=== PATIENT | male | born 1960 | race Caucasian/White ===

== ENCOUNTER 2018-02-10 14:46 | Emergency (ER) | payer OTHER | END 2018-02-10 17:32 | disposition home or self-care (01) | LOC: FTE 14:46 | DX: N50.89 Other specified disorders of the male genital organs (principal) | CPT/HCPCS: 76536; 76870; 99284-25 ==

== ENCOUNTER 2018-07-12 09:43 | Day surgery (SDC) | payer OTHER ==
[~2018-07-12 09:43] MED LIST: CEFAZOLIN 2 GM/50 ML (PMX) 50 ML IVPB
[2018-07-12] MEDS ORDERED: MIDAZOLAM 1 MG/ML 2 ML INJ (13:10)
[2018-07-12] MEDS ORDERED: FENTAnyl 50 MCG/ML VIAL ×2 (13:10→13:46)
[2018-07-12] MEDS ORDERED: CIPROFLOXACIN 400MG/D5W 200 ML (13:19)
[2018-07-12] MEDS: BUPIVACAINE 0.25% (MPF) 30 ML INJ (13:33)
[2018-07-12] MEDS ORDERED: CEFAZOLIN 1 GM INJ (14:03)
[2018-07-12] MEDS ORDERED: LIDOCAINE 2% (SDV) 5 ML INJ (14:03)
[2018-07-12] MEDS ORDERED: PROPOFOL 20 ML (14:03)
[2018-07-12] MEDS ORDERED: ONDANSETRON 4 MG INJ (14:04)
[2018-07-12] MEDS ORDERED: LABETALOL HCL 20MG INJ IV (14:30)
[2018-07-12] MEDS ORDERED: FENTAnyl 50 MCG/ML VIAL IV (14:30)
[2018-07-12] MEDS ORDERED: DIPHENHYDRAMINE 50 MG INJ IV (14:30)
[2018-07-12] MEDS ORDERED: OXYCODONE/ACETAMINOPHEN (5/325) TAB PO ×2 (14:30)
[2018-07-12] MEDS ORDERED: hydrALAzine 20 MG INJ IV (14:30)
[2018-07-12] MEDS ORDERED: METOCLOPRAMIDE 10 MG INJ IV (14:30)
[2018-07-12] MEDS ORDERED: MEPERIDINE 25 MG INJ IV (14:30)
[2018-07-12] MEDS ORDERED: HYDROmorphONE 1 MG/5 ML IV SYRINGE IV (14:30)
[2018-07-12] MEDS: ONDANSETRON 4 MG INJ IV (14:38)
[2018-07-12] MEDS: HYDROmorphONE 1 MG/5 ML IV SYRINGE IV (14:38)
== END 2018-07-12 17:05 | disposition home or self-care (01) ==
LOC: SDS 09:43
DX: N43.3 Hydrocele, unspecified (principal); N43.40 Spermatocele of epididymis, unspecified; N40.0 Benign prostatic hyperplasia without lower urinary tract symptoms
CPT/HCPCS: 55040; 88304